=== PATIENT | female | born 2000 | race Hispanic/Latino ===

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

== ENCOUNTER 2022-12-12 10:54 | Emergency (ER) | payer OTHER ==
[2022-12-12] MEDS ORDERED: LIDOCAINE 1% MPF 5 ML VIAL ONE (11:15)
--- NOTE | 2022-12-12 12:39 | RAD REPORT ---
EXAM DESCRIPTION: US - Extremity Nonvascular Limited - 12/12/2022 12:17 pm CLINICAL HISTORY: Axillary mass COMPARISON: None FINDINGS: 3.3 centimeter hypoechoic mass is present within the left axilla containing increased vasc ularity within the periphery as well as a few internal septa. IMPRESSION: 3.3 centimeter hypoechoic palpable left axillary mass probably an infected lymph node. A nother consideration is that it represents an abscess.
--- NOTE | 2022-12-12 13:11 | EDPHYS ---
Physician Documentation [facility] Name: Sarah Toro Age: 22 yrs Sex: Female : 2000 Arrival Date: 12/12/2022 Time: 10:57 Bed 13 Private MD: ED Physician [place] HPI: 12/12 11:45 This 22 yrs old Female presents to ER via Ambulatory with complaints of 12wks kb , Abscess. 11:46 The patient presents with an abscess of the left axilla. Description: erythematous, kb swollen, warm. Onset: The symptoms/episode began/occurred 1 week(s) ago. Possible cause(s): unknown. Associated signs and symptoms: Pertinent positives: erythema, swelling, Pertinent negatives: discharge, drainage, foreign body sensation, fever, headache, nausea, shortness of breath, vomiting. Modifying factors: the symptoms are alleviated by nothing, the symptoms are aggravated by pressure, touching. Severity of symptoms: At their worst the symptoms were moderate, in the emergency department the symptoms are unchanged. The patient has not experienced similar symptoms in the past. The patient has not recently seen a physician. Historical: - Allergies: 11:04 No Known Allergies; ll1 - PSHx: 11:04 None; ll1 - Immunization history:: Client reports receiving the 2nd dose of the Covid vaccine. - Social history:: Smoking status: Patient denies any tobacco usage or history of. ROS: 11:46 Constitutional: Negative for fever, chills, and weight loss. kb 11:46 Skin: Positive for abscess, of the left axilla. 11:46 All other systems are negative. Exam: 11:46 Constitutional: This is a well developed, well nourished patient who is awake, alert, kb and in no acute distress. Head/Face: Normocephalic, atraumatic. ENT: Moist Mucous membranes Cardiovascular: Regular rate and rhythm with a normal S1 and S2. No gallops, murmurs, or rubs. No pulse deficits. Respiratory: Respirations even and unlabored. No increased work of breathing. Talking in full sentences Abdomen/GI: Soft, non-tender. No distention MS/ Extremity: Pulses equal, no cyanosis. Neurovascular intact. Full, normal range of motion. Neuro: Awake and alert, GCS 15, oriented to person, place, time, and situation. Moves all extremities. Normal gait. 11:46 Skin: abscess, that is moderate sized, of the left axilla, with fluctuance, that is moderate. Vital Signs: 11:04 BP 118 / 75; Pulse 79; Resp 17; Temp 98.1; Pulse Ox 100% on R/A; Weight 57.15 kg; ll1 Height 5 ft. 3 in. ; Pain 10/10; 12:00 BP 111 / 69; Pulse 77; Resp 18; Pulse Ox 99% on R/A; eh3 13:00 BP 113 / 74; Pulse 75; Resp 18; Pulse Ox 100% on R/A; eh3 11:04 Body Mass Index 22.32 (57.15 kg, 160.02 cm) ll1 11:04 Pain Scale: Adult ll1 Procedures: 13:10 I \T\ D: Incision and drainage was performed for an abscess of the left axilla. Prepped kb with Betadine, Anesthetized with 2 ml's 1% Lidocaine. Incised with #11 blade. Drained moderate amount purulent fluid. Packed with iodoform gauze, Dressing: sterile 4x4 gauze, the patient tolerated the procedure well. MDM: 11:00 Patient medically screened. kb 11:47 Differential diagnosis: abscess, cellulitis, insect bite, Inflamed lymph node. Data kb reviewed: vital signs, nurses notes. 13:10 Counseling: I had a detailed discussion with the patient and/or guardian regarding: the kb historical points, exam findings, and any diagnostic results supporting the discharge/admit diagnosis, the need for outpatient follow up, a family practitioner, to return to the emergency department if symptoms worsen or persist or if there are any questions or concerns that arise at home. 12/12 11:07 Order name: I\T\D Setup; Complete Time: 11:12 kb 12/12 11:06 Order name: Extrmty Nonvasular Limited; Complete Time: 12:42 kb Administered Medications: No medications were administered Disposition Summary: 12/12/22 13:11 Discharge Ordered Location: Home kb Condition: Stable kb Diagnosis - Cutaneous abscess of left axilla kb Followup: kb - With: Emergency Department - When: As needed - Reason: Worsening of condition Followup: kb - With: Private Physician - When: 2 - 3 days - Reason: Recheck today's complaints, Continuance of care, Re-evaluation by your physician Forms: - Medication Reconciliation Form kb - Thank You Letter kb - Antibiotic Education kb - Prescription Opioid Use kb Signatures: Dispatcher [employer] Dena Fine FNP-C FNP-Ckb Lewis, Lynsay, RN RN ll1
--- NOTE | 2022-12-12 13:11 | ER ---
Nurse's Notes [facility] Name: Sarah Toro Age: 22 yrs Sex: Female : 2000 Arrival Date: 12/12/2022 Time: 10:57 Bed 13 Private MD: Diagnosis: Cutaneous abscess of left axilla Presentation: 12/12 11:04 Chief complaint: Patient states: Abscess under L arm for 1 week, worse and more painful ll1 for 2 days. No known fever. Coronavirus screen: Client denies travel out of the [place] in the last 14 days. At this time, the client does not indicate any symptoms associated with coronavirus-19. Ebola Screen: Patient denies travel to an Ebola-affected area in the 21 days before illness onset. Initial Sepsis Screen: Does the patient meet any 2 criteria? No. Patient's initial sepsis screen is negative. Does the patient have a suspected source of infection? Yes: Skin breakdown/wound. Risk Assessment: Do you want to hurt yourself or someone else? Patient reports no desire to harm self or others. Onset of symptoms was December 06, 2022. 11:04 Method Of Arrival: Ambulatory ll1 11:04 Acuity: WHIT 3 ll1 Triage Assessment: 11:06 General: Appears uncomfortable, Behavior is calm, cooperative, appropriate for age. ll1 Pain: Complains of pain in L armpit area Pain currently is 10 out of 10 on a pain scale. Quality of pain is described as aching, throbbing. Derm: Abscess located on L armpit has no drainage, is hot to touch, is red, is raised. Historical: - Allergies: 11:04 No Known Allergies; ll1 - PSHx: 11:04 None; ll1 - Immunization history:: Client reports receiving the 2nd dose of the Covid vaccine. - Social history:: Smoking status: Patient denies any tobacco usage or history of. Screenin:15 [facility] ED Fall Risk Assessment (Adult) History of falling in the last 3 months, kc6 including since admission No falls in past 3 months (0 pts) Confusion or Disorientation No (0 pts) Intoxicated or Sedated No (0 pts) Impaired Gait No (0 pts) Mobility Assist Device Used No (0 pt) Altered Elimination No (0 pt) Score/Fall Risk Level 0 - 2 = Low Risk Oriented to surroundings, Maintained a safe environment, Educated pt \T\ family on fall prevention, incl call for assistance when getting out of bed, Assessed \T\ reinforced patient's understanding of fall precautions, Hourly rounding (assess needs \T\ fall precautionary measures) done. Abuse screen: Denies threats or abuse. Denies injuries from another. Nutritional screening: No deficits noted. Tuberculosis screening: No symptoms or risk factors identified. Assessment: 11:15 General: Appears in no apparent distress. uncomfortable, Behavior is calm, cooperative, kc6 appropriate for age. Pain: Complains of pain in left arm pit Pain does not radiate. Pain currently is 10 out of 10 on a pain scale. Quality of pain is described as burning, sharp, Pain began 1 week ago Is continuous, Alleviated by rest, Aggravated by increased activity, repositioning, Noted to be resistant to movement, Also complains of no other associated symptoms. Neuro: Level of Consciousness is awake, alert, obeys commands, Oriented to person, place, time, situation, Appropriate for age. Cardiovascular: Capillary refill < 3 seconds. Respiratory: Airway is patent Trachea midline Respiratory effort is even, unlabored, Respiratory pattern is regular, symmetrical. GI: No signs and/or symptoms were reported involving the gastrointestinal system. : No signs and/or symptoms were reported regarding the genitourinary system. EENT: No signs and/or symptoms were reported regarding the EENT system. Derm: No signs and/or symptoms reported regarding the dermatologic system. Skin is intact, Skin is pink, warm \T\ dry. Musculoskeletal: No signs and/or symptoms reported regarding the musculoskeletal system. Circulation, motion, and sensation intact. Capillary refill < 3 seconds, Range of motion: intact in all extremities. 12:00 Reassessment: Patient appears in no apparent distress at this time. Patient and/or eh3 family updated on plan of care and expected duration. Pain level reassessed. Patient is alert, oriented x 3, equal unlabored respirations, skin warm/dry/pink. 13:00 Reassessment: Patient appears in no apparent distress at this time. Patient and/or eh3 family updated on plan of care and expected duration. Pain level reassessed. Patient is alert, oriented x 3, equal unlabored respirations, skin warm/dry/pink. Vital Signs: 11:04 BP 118 / 75; Pulse 79; Resp 17; Temp 98.1; Pulse Ox 100% on R/A; Weight 57.15 kg; ll1 Height 5 ft. 3 in. ; Pain 10/10; 12:00 BP 111 / 69; Pulse 77; Resp 18; Pulse Ox 99% on R/A; eh3 13:00 BP 113 / 74; Pulse 75; Resp 18; Pulse Ox 100% on R/A; eh3 11:04 Body Mass Index 22.32 (57.15 kg, 160.02 cm) ll1 11:04 Pain Scale: Adult ll1 ED Course: 10:57 Patient arrived in ED. mr 11:00 Dena Ackerman FNP-C is PHCP. kb 11:00 Chico Penn MD is Attending Physician. kb 11:06 Triage completed. ll1 11:06 Arm band placed on Patient placed in an exam room, on a stretcher. ll1 11:13 Assist provider with I \T\ D: Set up I\T\D tray. mm 9 11:15 Karli Mcdonald RN is Primary Nurse. kc6 11:15 Patient has correct armband on for positive identification. Placed in gown. Bed in low kc6 position. Call light in reach. Side rails up X 1. 12:00 Sara Corea RN is Primary Nurse. Primary Nurse role handed off by Karli Mcdonald RN [facility] 12:19 Extrmty Nonvasular Limited In Process Unspecified. EDMS Administered Medications: No medications were administered Medication: 13:10 VIS not applicable for this client. [facility] Outcome: 13:11 Discharge ordered by . kb Signatures: Dispatcher [employer] EDMS Dena Ackerman FNP-C DROP WIRE ALINER-Nereida Mayela CelisRoger, RN RN 1 Sara Corea RN RN 3 Karli Mcdonald RN RN [email or web address] Radha Burgos mm9 Corrections: (The following items were deleted from the chart) 12:08 12:08 Primary Nurse role handed off by Karli Mcdonald RN [facility] 12:08 12:08 Sara Corea RN is Primary Nurse. 3 [facility]
[2022-12-12] MEDS ORDERED: ACETAMINOPHEN 500 MG TAB ONE (13:46)
[2022-12-12 14:21] VITALS: TEMP 98.1
[2022-12-12 14:23] VITALS: BP 113/74; O2SAT 100
== END 2022-12-12 14:07 | disposition home or self-care (01) ==
LOC: ER 10:54
PROC: 0H9CXZZ Drainage of Left Upper Arm Skin, External Approach (ICD-10-PCS; principal; 2022-12-12)
DX: O99.711 Diseases of the skin and subcutaneous tissue complicating pregnancy, first trimester (principal); L02.412 Cutaneous abscess of left axilla; Z3A.12 12 weeks gestation of pregnancy
CPT/HCPCS: 76882; 99284; 10060; J2001

== ENCOUNTER 2023-02-18 19:48 | Emergency (ER) | payer OTHER ==
[2023-02-18] MEDS ORDERED: LIDOCAINE 1% MPF 5 ML VIAL ONE (20:14)
--- NOTE | 2023-02-18 21:22 | EDPHYS ---
Physician Documentation [facility] Name: Sarah Toro Age: 23 yrs Sex: Female : 2000 Arrival Date: 02/18/2023 Time: 19:48 Bed Treatment Private MD: ED Physician Chico Penn HPI: 02/18 21:20 This 23 yrs old Female presents to ER via Ambulatory with complaints of Arm kb Pain. 21:20 The patient presents with an abscess of the left axilla. Description: erythematous, kb fluctuant, swollen. Onset: The symptoms/episode began/occurred 3 day(s) ago. Possible cause(s): unknown. Associated signs and symptoms: Pertinent positives: erythema, swelling. Modifying factors: the symptoms are alleviated by nothing, the symptoms are aggravated by pressure, squeezing the lesion and expressing the contents, touching. Severity of symptoms: At their worst the symptoms were moderate, in the emergency department the symptoms are unchanged. The patient has experienced a previous episode. The patient has not recently seen a physician. Historical: - Allergies: 20:04 No Known Allergies; nj1 - PMHx: 20:04 None; nj1 - PSHx: 20:04 None; nj1 - Immunization history:: Client reports receiving the 1st dose of the Covid vaccine. - Social history:: Smoking status: Patient denies any tobacco usage or history of. ROS: 21:20 Constitutional: Negative for fever, chills, and weight loss. kb 21:20 Skin: Positive for abscess. 21:20 All other systems are negative. Exam: 21:20 Constitutional: This is a well developed, well nourished patient who is awake, alert, kb and in no acute distress. Head/Face: Normocephalic, atraumatic. ENT: Moist Mucous membranes Cardiovascular: Regular rate and rhythm with a normal S1 and S2. No gallops, murmurs, or rubs. No pulse deficits. Respiratory: Respirations even and unlabored. No increased work of breathing. Talking in full sentences MS/ Extremity: Pulses equal, no cyanosis. Neurovascular intact. Full, normal range of motion. Neuro: Awake and alert, GCS 15, oriented to person, place, time, and situation. Moves all extremities. Normal gait. 21:20 Skin: abscess, that is small, that is moderate sized, of the left axilla, with fluctuance. Vital Signs: 20:01 BP 121 / 69; Pulse 93; Resp 16; Temp 98.3(O); Pulse Ox 99% on R/A; Weight 56.7 kg; nj1 Height 5 ft. 4 in. ; Pain 6/10; 21:59 BP 115 / 77; Pulse 84; Resp 18; Pulse Ox 100% on R/A; Pain 4/10; pf1 20:01 Body Mass Index 21.46 (56.70 kg, 162.56 cm) nj1 20:01 Pain Scale: Adult nj1 21:59 Pain Scale: Adult pf1 Procedures: 21:19 I \T\ D: Incision and drainage was performed for an abscess of the left axilla. Prepped kb with Betadine, Anesthetized with 2 ml's 1% Lidocaine. Incised with #11 blade. Drained moderate amount purulent fluid. Packed with iodoform gauze, Dressing: sterile 4x4 gauze, the patient tolerated the procedure well. MDM: 19:56 Patient medically screened. kb 21:19 Data reviewed: vital signs, nurses notes. kb 21:19 Differential diagnosis: abscess, allergic reaction, cellulitis, insect bite. kb Counseling: I had a detailed discussion with the patient and/or guardian regarding: the historical points, exam findings, and any diagnostic results supporting the discharge/admit diagnosis, the need for outpatient follow up, a family practitioner, to return to the emergency department if symptoms worsen or persist or if there are any questions or concerns that arise at home. 02/18 20:00 Order name: I\T\D Setup; Complete Time: 20:08 kb Administered Medications: 21:00 Drug: Lidocaine Infiltration (1 %) 1 vials {Note: given by JANET Fernandes.} Volume: 5 ml; pf1 Route: Infiltration; 22:01 Follow up: Response: No adverse reaction; Marked relief of symptoms pf1 21:55 Drug: Acetaminophen PO 1000 mg Route: PO; pf1 22:00 Follow up: Response: No adverse reaction; Pain is unchanged, physician notified pf1 Disposition Summary: 02/18/23 21:21 Discharge Ordered Location: Home Condition: Stable kb Diagnosis - Cutaneous abscess of left axilla kb Followup: kb - With: Emergency Department - When: As needed - Reason: Worsening of condition Followup: kb - With: Private Physician - When: 2 - 3 days - Reason: Recheck today's complaints, Continuance of care, Re-evaluation by your physician Discharge Instructions: - Discharge Summary Sheet kb - Skin Abscess, [id number] kb - Incision and Drainage, Care After kb Forms: - Medication Reconciliation Form kb - Thank You Letter kb - Antibiotic Education kb - Prescription Opioid Use kb Prescriptions: - Cephalexin 500 mg Oral Capsule - take 1 capsule by ORAL route every 8 hours for 10 days; 30 capsule; Refills: 0, kb Product Selection Permitted Signatures: Dena Ackerman, ANTONIOC Janel Fu RN RN pf1 Jane Sharp RN RN nj1
--- NOTE | 2023-02-18 21:22 | ER ---
Nurse's Notes [facility] Name: Sarah Toro Age: 23 yrs Sex: Female : 2000 Arrival Date: 02/18/2023 Time: 19:48 Bed Treatment Private MD: Diagnosis: Cutaneous abscess of left axilla Presentation: 02/18 20:01 Chief complaint: Patient states: Abscess to left axilla. Noted a couple days ago, nj1 getting worse. Has had one in that same area drained in November. Coronavirus screen: Vaccine status: Patient reports receiving the 1st dose of the Covid vaccine. Ebola Screen: Patient denies travel to an Ebola-affected area in the 21 days before illness onset. Initial Sepsis Screen: Does the patient meet any 2 criteria? No. Patient's initial sepsis screen is negative. Does the patient have a suspected source of infection? No. Patient's initial sepsis screen is negative. Risk Assessment: Do you want to hurt yourself or someone else? Patient reports no desire to harm self or others. Onset of symptoms was February 13, 2023. 20:01 Method Of Arrival: Ambulatory [facility] 20:01 Acuity: WHIT 3 nj1 Historical: - Allergies: 20:04 No Known Allergies; nj1 - PMHx: 20:04 None; nj1 - PSHx: 20:04 None; nj1 - Immunization history:: Client reports receiving the 1st dose of the Covid vaccine. - Social history:: Smoking status: Patient denies any tobacco usage or history of. Screenin:22 [facility] ED Fall Risk Assessment (Adult) History of falling in the last 3 months, lg3 including since admission No falls in past 3 months (0 pts). Abuse screen: Denies threats or abuse. Denies injuries from another. Nutritional screening: No deficits noted. Tuberculosis screening: No symptoms or risk factors identified. Assessment: 20:22 General: Appears in no apparent distress. comfortable, Behavior is calm, cooperative. lg3 Pain: Complains of pain in left axilla. Neuro: No deficits noted. Robles Agitation-Sedation Scale (RASS): 0 - Alert and Calm Level of Consciousness is awake, alert, obeys commands, Oriented to person, place, time, situation. Cardiovascular: No deficits noted. Denies chest pain, shortness of breath, Capillary refill < 3 seconds Clubbing of nail beds is absent JVD is absent Patient's skin is warm and dry. Respiratory: No deficits noted. Airway is patent Respiratory effort is even, unlabored, Respiratory pattern is regular, symmetrical. GI: No deficits noted. No signs and/or symptoms were reported involving the gastrointestinal system. : No deficits noted. No signs and/or symptoms were reported regarding the genitourinary system. EENT: No deficits noted. No signs and/or symptoms were reported regarding the EENT system. Derm: Skin is intact, is healthy with good turgor, Skin is dry, Skin is normal, abscess noted to left axilla Reports pain. Musculoskeletal: No deficits noted. No signs and/or symptoms reported regarding the musculoskeletal system. Circulation, motion, and sensation intact. Range of motion: intact in all extremities. Vital Signs: 20:01 BP 121 / 69; Pulse 93; Resp 16; Temp 98.3(O); Pulse Ox 99% on R/A; Weight 56.7 kg; nj1 Height 5 ft. 4 in. ; Pain 6/10; 21:59 BP 115 / 77; Pulse 84; Resp 18; Pulse Ox 100% on R/A; Pain 4/10; pf1 20:01 Body Mass Index 21.46 (56.70 kg, 162.56 cm) nj1 20:01 Pain Scale: Adult nj1 21:59 Pain Scale: Adult pf1 ED Course: 19:55 Patient arrived in ED. ts1 19:56 [facility]C [facility]. kb 19:56 Chico Penn MD is Attending Physician. kb 20:04 Triage completed. nj1 20:04 Arm band placed on left wrist. nj1 20:07 Heidi Cruz, NIDIA is Primary Nurse. lg3 20:22 Patient has correct armband on for positive identification. Placed in gown. Bed in low lg3 position. Call light in reach. Side rails up X 1. Client placed on continuous cardiac and pulse oximetry monitoring. NIBP monitoring applied. Door closed. Noise minimized. Warm blanket given. Family accompanied patient. 22:00 No provider procedures requiring assistance completed. Patient did not have IV access pf1 during this emergency room visit. Administered Medications: 21:00 Drug: Lidocaine Infiltration (1 %) 1 vials {Note: given by JANET Fernandes.} Volume: 5 ml; pf1 Route: Infiltration; 22:01 Follow up: Response: No adverse reaction; Marked relief of symptoms pf1 21:55 Drug: Acetaminophen PO 1000 mg Route: PO; pf1 22:00 Follow up: Response: No adverse reaction; Pain is unchanged, physician notified pf1 Outcome: 21:21 Discharge ordered by . lizzie 22:01 Discharged to home ambulatory, with family. pf1 22:01 Condition: improved 22:01 Discharge instructions given to patient, Instructed on discharge instructions, follow up and referral plans. Demonstrated understanding of instructions, follow-up care, medications, Prescriptions given X 1. 22:01 Patient left the ED. pf1 Signatures: Dena Ackerman, GARMENT EXAMINER-C GARMENT EXAMINER-Heidi Monroe RN RN lg3 Janel Mcghee RN RN pf1 Jane Sharp RN RN nj1 Leanne Wilhelm, PAS PAS ts1 Corrections: (The following items were deleted from the chart) 20:06 20:01 BP 121 / 69; Pulse 93bpm; Resp 16bpm; Pulse Ox 99% RA; 56.7 kg; Height 5 ft. 4 nj1 in.; BMI: 21.4; Pain 6/10, Adult; nj1
[2023-02-18] MEDS ORDERED: ACETAMINOPHEN 500 MG TAB ONE (21:57)
[2023-02-18 23:16] VITALS: BP 121/69; TEMP 98.3; O2SAT 99
== END 2023-02-18 22:01 | disposition home or self-care (01) ==
LOC: ER 19:48
PROC: 0X950ZZ Drainage of Left Axilla, Open Approach (ICD-10-PCS; principal; 2023-02-18)
DX: L02.412 Cutaneous abscess of left axilla (principal)
CPT/HCPCS: 99283; 10060; J2001